=== PATIENT | female | born 1950 | race Caucasian/White ===

== ENCOUNTER 2017-08-27 08:45 | Inpatient (IN) | payer MEDICARE, OTHER ==
--- NOTE | 2017-08-20 09:03 | NUR ---
PATIENT HERE TODAY FOR PREADMISSION APPOINTMENT. PATIENT IS SCHEDULED FOR A LEFT TOTAL KNEE ARTHROPLASTY ON 08/27/17. SHE HAS A HISTORY OF BILATERAL HIP REPLACEMENTS AND A RIGHT KNEE REPLACEMENT. SHE HAS A WALKER, CANE, BATH BENCH, AND TOILET SEAT RISER FROM HER PREVIOUS SURGERIES. SHE HAS ONE STEP INTO THE HOME AND ONE STEP INTO THE LIVING ROOM AREA INSIDE THE HOME. SHE DECLINED A PREOP PHYSICAL THERAPY APPOINTMENT BUT HAS A POST OP PHYSICAL THERAPY APPOINTMENT SET UP FOR 09/09/17 AT THE [facility]. SHE STATES SHE SPOKE WITH DR HERNANDEZ REGARDING THE SWING BED PROGRAM. THIS INFORMATION WILL BE SENT TO DR DIAZ OFFICE AND HI PLANNING FOR FURTHER FOLLOW UP.
[~2017-08-27] VITALS: Ht 172.7 cm; Wt 81.7 kg
[~2017-08-27 08:45] MED LIST: ATENOLOL50 MG PO; DOCUSATE SODIU100 MG PO; ESTRACE0.5 MG PO; FLUCONAZOLE150 MG PO; KETOCONAZOLE15 GM TOP; LIPITOR20 MG PO; MECLIZINE HCL25 MG PO; MELOXICAM15 MG PO; NORCO 5-325 TA1 EACH PO; POTASSIUM CHLO10 MEQ PO; PYRIDIUM200 MG PO; SIMVASTATIN20 MG PO; THERALITH XR T1 EACH PO; UROCIT-K10 MEQ PO; ZOFRAN ODT4 MG PO
--- NOTE | 2017-08-27 10:14 | NUR ---
MED REC COMPLETE WITH DR COATS OUTPATIENT MED LIST.
--- NOTE | 2017-08-27 15:29 | NUR ---
08/27/17 1529 Ammy Michel 1458 PT ARRIVED AWAKE TALKING TO STAFF. ICE TO L KNEE. 1515 PT SIPPING ON WATER. 1520 XRAY IN DEPT DOING L KNEE XRAYS. PT WITH NO C/O'S. MOVING R LEG, UNABLE TO MOVE L LEG.
--- NOTE | 2017-08-27 15:55 | NUR ---
PT TO FLOOR AT 1550 VIA BED, ACCOMPANIED BY LIAT NORMAN. RECIEVED BEDSIDE REPORT. PT DENIES PAIN, DRESSING TO LEFT KNEE C/D/I. PT DROWSY. , BIANCA AT BEDSIDE.
--- NOTE | 2017-08-27 16:31 | NUR ---
PT STILL DROWSY. PLACED ICE PACKS TO LEFT KNEE. DRESSING REMAINS C/D/I. RIGHT LOWER EXTREMITY SENSATION INTACT. LEFT LOWER EXTREMITY SENSATION DIMINISHED FROM DERMATOME LEVEL L2 ON. PT DENIED PAIN.
--- NOTE | 2017-08-27 16:37 | NUR ---
PER REPORT FROM NEVIN Burk, CHARGE NURSE, SHE NOTIFIED [facility] PHYSICAL THERAPY OUTPATIENT LOCATION OF PT'S ORDER FOR CPM. THERE IS NOT A PHYSCIAL THERAPY STAFF AT THE HOSPITAL. PER RICK, PHYSICAL THERAPY STAFF MAY BRING CPM TO HOSPITAL TOMORROW AM, MESSAGE LEFT FOR P.T. THERE IS NO CPM AT HOSPITAL.
--- NOTE | 2017-08-27 17:00 | NUR ---
DR. COATS IN WITH PT DOING ASSESSMENT. PT ANSWERING QUESTIONS APROPRIATELY. HAD DR. COATS LOOK AT PT'S INNER RIGHT LOWER CALF/ANKLE. PT HAS A HEALING SURGICAL SITE, HAD CANCEROUS TISSUE REMOVED, PT REQUESTED TO HAVE NEOSPORIN APPLIED. DR. COATS ACKNOWLEDGED PT'S REQUEST.
--- NOTE | 2017-08-27 17:48 | NUR ---
PT UP TO BEDSIDE COMMODE WITH 2 PERSON ASSIST WITH FWW, HAD SMALL AMOUNT OF INCONTINENT URINE, AND IS NOW VOIDING URINE ON BEDSIDE COMMODE.
--- NOTE | 2017-08-27 18:22 | NUR ---
PT IN BED, HOB ELEVATED, EATING CLEAR LIQUID DINNER. DENIES PAIN. REPORTS SENSATION IS PRESENT TO BILATERAL LOWER EXTREMIITIES, BUT THAT LLE IS STILL SOMEWHAT DIMINISHED. CALL LIGHT AND PERSONAL SUPPLIES IN REACH.
--- NOTE | 2017-08-27 18:34 | NUR ---
PT SITTING UP IN BED, EATING CLEAR LIQUID TRAY. DENIES NAUSEA, DENIES PAIN.
--- NOTE | 2017-08-27 19:10 | NUR ---
IN ROOM FOR REPORT, PT'S IS AT BEDSIDE. BROUGHT PT FRESH WATER AND PT DENIES FURTHER NEEDS. CALL LIGHT IS WITHIN REACH.
--- NOTE | 2017-08-27 19:10 | NUR ---
PT IS AWAKE IN BED AND STATES SHE IS STARTING TO FEEL PAIN. WILL GET SOME CLARIFICATIONS ON MED ORDERS BEFORE ADMINISTRATION.
--- NOTE | 2017-08-27 19:50 | NUR ---
ZEV RN SPOKE WITH WITH YOAV DOWNEY TO CLARIFY IF THERE IS A HOLD ON NARCOTIC PAIN MEDICINE. SHE SAYS SHE DOES NOT HAVE A HOLD AND NEEDS TO TAKE PHENERGAN 20 MINUTES PRIOR TO NARCOTIC PAIN MEDS PO/IV. PT ASKED ABOUT CPM MACHINE ORDERED FOR TONIGHT. THE CPM MACHINE HAS BEEN REQUESTED FROM THE [facility] AND WILL HAVE TO FOLLOWUP IN THE AM.
--- NOTE | 2017-08-27 20:36 | NUR ---
ADMINISTERED MEDICATIONS AND HELPED PT TO BEDSIDE COMMODE. PT DENIES FURTHER NEEDS AT THIS TIME. CALL LIGHT IS WITHIN REACH.
--- NOTE | 2017-08-27 21:58 | NUR ---
PT STATES SHE HAS SOME PAIN AND WOULD LIKE TO STAY ON TOP OF IT. 5MG OXYCODONE GIVEN. PT DENIES FURTHER NEEDS AT THIS TIME.
--- NOTE | 2017-08-28 00:01 | NUR ---
PT IS RESTING WITH EYES CLOSED, RESPIRATIONS EVEN AND NONLABORED ON CONTINUOUS PULSEOX AND CALL LIGHT IS WITHIN REACH.
--- NOTE | 2017-08-28 00:40 | NUR ---
HELPED PT TO RESTROOM, PT IS BACK IN BED AND CALL LIGHT IS WITHIN REACH. SCDS, HEEL PROTECTORS, AND ICE IN PLACE.
--- NOTE | 2017-08-28 02:33 | NUR ---
PAIN MEDS ADMINISTERED. FRESH WATER AT BEDSIDE AND CALL LIGHT IS WITHIN REACH.
--- NOTE | 2017-08-28 05:17 | NUR ---
ADMINISTERED MEDICATIONS AND BROUGHT PT A SODA. SHE DENIES FURTHER NEEDS AT THIS TIME. CALL LIGHT IS WITHIN REACH.
--- NOTE | 2017-08-28 07:00 | NUR ---
BEDSIDE HANDOFF REPORT RECEIVED FROM HORSE RACING ANALYST RN. PT SLEEPING, LEFT UNDISTURBED.
--- NOTE | 2017-08-28 08:53 | NUR ---
PATIENT STATES THAT SHE ALREADY WASHED FACE AND HANDS AND BRUSHED TEETH. FRESH ICE WATER GIVEN. PATIENT STATED THAT SHE HAS GOTTEN UP TO THE BATHROOM ON HER OWN WITH IV POLE AND WALKER. THIS HOSE INSPECTOR AND PATCHER TALKED TO HER ABOUT THE RISKS OF GETTING UP ON HER OWN AND OUR POLICY. PATIENT STATES THAT SHE WILL NOT WAIT IF THE STAFF TAKES TO LONG.
--- NOTE | 2017-08-28 09:00 | NUR ---
PT BEING ASSISTED BY NURSE AIDE WITH [facility]. PT ASSISED TO BED. PT ON ROOM AIR, LUNG SOUNDS CLEAR. PT RATING PAIN 6/10 WITH MOVEMENT, DISCUSSED PAIN MANAGEMENT. PT DENIES NAUSEA, BOWEL TONES ACTIVE, TOLERATING REGULAR DIET. PT CMS INTACT. DRESSING TO LEFT KNEE WITH SMALL AMOUNT OF STRIKE THROUGH TO DISTAL PORTION OF DRESSING. PT REFUSING MIRALAX, STATES IT CAUSES DIARRHEA. DISCUSSED PLAN OF CARE FOR THE DAY. PT DENIES OTHER NEEDS AT THIS TIME.
--- NOTE | 2017-08-28 09:31 | NUR ---
PATIENT RESTING IN BED NOW. FRESH ICE WATER. CALL BUTTON WITHIN REACH. NO OTHER NEEDS AT THIS TIME.
--- NOTE | 2017-08-28 10:20 | NUR ---
PT GIVEN 10 MG OXYCODON EPER REQUEST. PT RATING PAIN 3/10 AT REST. PT DENIES OTHER NEEDS AT THIS TIME. PHYSICAL THERAPY TO BEDSIDE TO WORK WITH PT.
--- NOTE | 2017-08-28 12:10 | NUR ---
PT RESTING IN BED. CPM RUNNING. PT RATING PAIN 3/10, GIVEN SCHEDULED TORADOL AND TYLENOL. IV FLUSHED, PATENT. PT DENIES NEEDS AT THIS TIME.
--- NOTE | 2017-08-28 13:00 | NUR ---
PATIENT IN BED PLAYING ON PHONE. THIS IT HELP DESK ASSOCIATE TOLD PATIENT THAT WE WERE COMING IN TO REMOVE HER CPM. PATIENT STATED THAT SHE IS PUTTING SOME CODES IN HER PHONE AND TO DO WHAT WE NEED TO DO.
--- NOTE | 2017-08-28 13:56 | NUR ---
PT SITTING UP IN BED, WITH CPM DEVICE IN USE. PT WAS BUSY ON HER PHONE, NOT TOO INTERESTED IN VISITING-POLITE THOUGH. EXTENDED A BLESSING WILL FOLLOW NEEDED
--- NOTE | 2017-08-28 14:25 | NUR ---
PATIENT RESTING IN BED ON THE PHONE. CALL LIGHT WITHIN REACH. NO OTHER NEEDS AT THIS TIME.
--- NOTE | 2017-08-28 15:48 | NUR ---
PATIENT BEING MOVED FROM ROOM 119 TO ROOM 114.
--- NOTE | 2017-08-28 16:00 | NUR ---
PT MOVED TO ROOM 114, BELONGINGS MOVED WITH PT. PT SETTLED IN ROOM. PT REQUESTING TO WEAR CPM, PLACED AT 0-60 DEGREES TO LEFT LEG. PT DENIES OTHER NEEDS AT THIS TIME, CALL LIGHT WITHIN REACH.
--- NOTE | 2017-08-28 16:44 | NUR ---
PT ON ROOM AIR. PAIN WELL CONTROLLED WITH 10 MG PO OXYCODONE Q4H, SCHEDULED TYLENOL AND TORADOL. PT UP WITH PHYSICAL THERAPY, WALKED IN DEMPSEY, CPM SET UP AND COMPLETED TWICE. SBA WITH FWW. PT TOLERATING REGULAR DIET. CMS INTACT. SCDS, HEEL PROTECTORS. DRESSING WITH SMALL AMOUNT OF STRIKE THROUGH THIS MORNING, UNCHANGED. PT VOIDING QS.
--- NOTE | 2017-08-28 18:46 | NUR ---
PT WITH PHLEBITIS TO RFA ABOVE IV SITE, IV DISCONTINUED. NEW IV SITE OBTAINED TO LAC, 22G. PT RESTING IN BED. PT DENIES OTHER NEEDS AT THIS TIME.
--- NOTE | 2017-08-28 19:15 | NUR ---
RECEIVED REPORT FROM DAY SHIFT RN. PATIENT IS RESTING IN BED WATCHING TV. PATIENT RATES PAIN AT A 3/10. DENIES THE NEED FOR PAIN MEDICATION AT THIS TIME. CALL LIGHT IN REACH. NO NEEDS NOTED.
--- NOTE | 2017-08-28 21:00 | NUR ---
PT AWAKE IN BED. PT WANTED TO KNOW WHEN SHE COULD HAVE PAIN MEDS. SAID PAIN WAS 7 OUT OF 10. TOLD NURSE PUMA.
--- NOTE | 2017-08-28 21:02 | NUR ---
PATIENT ASSSESMENT COMPLETED. PATIENT HAS SHADOWING ON BANDAGE BELOW THE KNEE. PATIENT RATES PAIN AT A 3/10. WILL BRING PATIENT PAIN MEDICATION WHEN AVAILABLE, PATIENT AGREES. PATIENTS EVENING MEDICATIONS GIVEN PER ORDER. PATIENTS VITALS TAKEN AND RECORDED. PATIENT REFUSED MILK OF MAG. PATIENT GIVEN SCHEDULED SLEEP AID PER ORDER. PATIENT DENIES ANY FURTHER NEEDS. CALL LIGHT IN REACH.
--- NOTE | 2017-08-28 22:12 | NUR ---
PATIENT GIVEN PRN PHENEGRAN PER ORDER. PATIENT REQUESTED NAUSEA MEDICATION BEFORE PAIN MEDICATION GIVEN. PATIENT ALSO PROVIDED WITH ICE PACK FOR RIGHT KNEE.
--- NOTE | 2017-08-28 22:53 | NUR ---
PATIENT GIVEN PRN PAIN MEDICATION PER ORDER. PATIENT RATES PAIN AT A 8/10. PATIENT COMPLAINS OF PAIN IN HER "KNEE CAP AND UPPER THIGH" PATIENT ASSISTED TO THE RESTROOM A SBA W/FWW. PATIENT IA NOW BACK IN BED RESTING. PATIENT HAS ICE APPLIED TO LEFT KNEE. PATIENT HAS SCDS AND HEEL PROTECTORS IN PLACE. NO FURTHER NEEDS NOTED. CALL LIGHT IN REACH.
--- NOTE | 2017-08-29 00:09 | NUR ---
PATIENT GIVEN SHCEDULED PAIN MEDICATION. PATIENT RATES PAIN AT A 7/10. PATIENT CONTINUES TO STRUGGLE WITH SLEEP. NO FURTHER NEEDS NOTED. CALL LIGHT IN REACH.
--- NOTE | 2017-08-29 01:35 | NUR ---
TOOK PT MIDNIGHT SNACK. EMPTYED GARBAGE. UPDATED WB.
--- NOTE | 2017-08-29 02:59 | NUR ---
PATIENT GIVEN PHENEGRAN HALF HOUR BEFORE GIVEN PRN PAIN MEDICATION FOR 10/10 PAIN. PATIENT COMPLAINS OF "BURNING" PAIN IN HER LEFT KNEE. PATIENT WAS ABLE TO AMBULATE IN THE DEMPSEY FROM ROOM 114 TO ROOM 111 AND BACK. PATIENT IS NOW IN BED RESTING WITH SCDS AND HEEL PROTECTORS ON. ICE APPLIED TO LEFT KNEE. PATIENT GIVEN DIET COKE PER REQUEST. NO FURTHER NEEDS NOTED. CALL LIGHT IN REACH.
--- NOTE | 2017-08-29 05:07 | NUR ---
PATIENT IS RESTING IN BED WATCHING TV. PATIENT RATES PAIN AT A 5/10. PATIENT WOULD LIKE PAIN MEDICATION WHEN AVAILABLE. DISCUSSED SWING BED WITH PATIENT. ALL QUESTIONS ANSWERED TO THE BEST OF MY ABILITY. WILL LET DISCHARGE PLANNING KNOW SHE WOULD LIKE TO SPEEK WITH THEM. PATIENT DENIES ANY FURTHER NEEDS AT THIS TIME. CALL LIGHT IN REACH.
--- NOTE | 2017-08-29 05:27 | NUR ---
PATIENT DID NOT REST DURING THIS SHIFT. PATIENT IS ON A REG DIET AND IS TOLERATING IT WELL, NO NAUSEA NOTED. PATIENT IS A SBA W/FWW AND IS STEADY ON HER FEET. PATIENT HAS SCDS AND HEEL PROTECTORS IN PLACE. PATIENT IS SL AND IV FLUSHES WELL. PATIENT RECEVEID PRN PAIN MEDICATION Q4HRS AND NAUSEA MEDICATION EVERY TIME BEFORE PAIN MEDICATION. PATIENT HAS CPM ORDER FOR TID 2 HRS AT A TIME. PATIENT HAS ICE APPLIED TO LEFT KNEE PRN. PATIENT HAS DRY SHADOWING BELOW THE KNEE ON THE DRESSING. PATIENT IS AAOX3 AND USES CALL LIGHT APPROPRIATELY.
--- NOTE | 2017-08-29 05:48 | NUR ---
PT DOING WELL. LAB WAS IN DRAWING BLOOD. PT HAS CALL LIGHT IN REACH
--- NOTE | 2017-08-29 06:02 | NUR ---
PATIENT GIVEN SHEDULED OAIN MEDICATION PER ORDER. PATIENT RATES PAIN AT A 5/10. NO FURTHER NEEDS NOTED. CALL LIGHT IN REACH.
--- NOTE | 2017-08-29 07:05 | NUR ---
PATIENT GIVEN PRN PAIN MEDICATION PER ORDER FOR 10/31. PATIENT ASSISTED TO THE RESTROOM. PATIENT IS A SBA W/FWW. PATIENT IS BACK IN BED WITH SCDS AND HEEL PROTECTORS. NO FURTHER NEEDS NOTED. CALL LIGHT IN REACH.
--- NOTE | 2017-08-29 07:10 | NUR ---
BEDSIDE HANDOFF REPORT RECEIVED FROM HEART SPECIALIST RN.
--- NOTE | 2017-08-29 08:18 | NUR ---
PATIENT SITTING UP IN BED EATING BREAKFAST. PATIENT REPEATEDLY ASKED THIS CORPORATE COMPLIANCE DIRECTOR TO CALL HER SONS QUALITY MANAGER TO HAVE INFO RELEASED TO ANOTHER QUALITY MANAGER FOR TAX PURPOSES. THIS CORPORATE COMPLIANCE DIRECTOR TOLD HER THAT WOULD NOT BE POSSIBLE AND REDIRECTED THE CONVERSATION. PATIENT SEEMS A BIT CONFUSED AND IS TALKING ABOUT SEVERAL DIFFERENT THINGS AT ONCE. EXTREMELY ITCHY THIS MORNING. CALL LIGHT IN REACH NO OTHER NEEDS.
--- NOTE | 2017-08-29 08:45 | NUR ---
NOTIFIED BY NURSE AIDE THAT PT WAS NOT MAKING SENSE. PT RESTING IN BED. PT ANSWERING ALL ORIENTATION QUESTIONS CORRECTLY BUT PT IS NOT HAVING FLUID THOUGHT PROCESSES AND IS TALKING ABOUT BEING AT THE POST OFFICE THIS MORNING, PT HAS NOT SLEPT FOR PAST TWO DAYS, DISCUSSED WITH PT POSSIBLE CAUSES FOR CONFUSION. PT ON ROOM AIR, LUNSG SOUNDS CLEAR. PT TOELRATING REGULAR DIET, GOOD APPETITE, BOWEL TONES ACTIVE. CMS INTACT, WITHOUT EDEMA. PHYSICAL THERAPY AT BEDSIDE TO WORK WITH PT. PT DENIES OTHER NEEDS AT THIS TIME. DR. HERNANDEZ AND DR. WHEELER NOTIFIED OF CONFUSION, NO NEW ORDERS. PT DENIES OTHER NEEDS AT THIS TIME.
--- NOTE | 2017-08-29 09:44 | OR ---
[facility] [address], [place] [address] Signed DATE OF OPERATION: 08/27/2017 SURGEON: Ken Hernandez MD PREOPERATIVE DIAGNOSIS: End-stage osteoarthritis, left knee. POSTOPERATIVE DIAGNOSIS: End-stage osteoarthritis, left knee. PROCEDURE: Left total knee arthroplasty. ANESTHESIA: Spinal with sedation. SPECIMENS AND COMPLICATIONS: There were no specimens or complications. TOURNIQUET TIME: Little over 80 minutes. IMPLANTS: Attune size 6 narrow PS femur, a size 5 fixed bearing tibial tray with a 5 PS poly and a 35 mm All-Poly patellar button. WHAT WAS DONE: The patient was taken to the operating room. After anesthesia was induced and airway secured, the patient was positioned, prepped and draped in a routine sterile fashion. The leg was exsanguinated with an Esmarch bandage. Pneumatic tourniquet about the thigh was inflated to 300 mmHg pressure. A straight anterior approach was made at the knee to skin and subcutaneous tissue. A small medial flap was created and an anteromedial arthrotomy performed. The patella was turned on edge and about 9 mm were trimmed off the posterior aspect. A 35 mm popsicle was placed on the back of the patella and drill holes were made. A 35 mm All-Poly patella was then snap fitted into place and gave us good alignment and good position, and reconstituted the pre-resection patellar height. The patella was then slid into the lateral recess. We then flexed the knee and placed the [employer] navigation device on the distal femur. Using the protocol, the distal femur was then resected at neutral varus valgus, taking about 10 mm off the medial side and resecting it in about 3 degrees of flexion. The femoral wafers were then removed. We Electronically Signed By: KEN HERNANDEZ MD 08/29/17 0944 PATIENT NAME: RUTH JHA OPERATIVE REPORT DATE OF : 52 REPORT #: [id number] PHYSICIAN: KEN HERNANDEZ MD PCP: CECY COATS MD REPORT IS CONFIDENTIAL AND NOT TO BE RELEASED WITHOUT AUTHORIZATION [facility] [address], [place] [address] Signed then transitioned the guide to the tibia and again following the [place] navigation protocol digitized the proximal tibia and then resected that in neutral varus valgus 3 degrees of posterior slope per the Attune surgical protocol and removing about 5 mm off the medial tibial plateau. The tibial wafer was removed and sized to a size 5. We then placed the femoral sizing jig on the distal femur and it sized to a size somewhere between a 6 and 7. We placed the drill guides in 3 degrees of external rotation, but once we put the 7, 4-in-1 cutting block on the end was significantly clear, we are going to have significant overhang medially and laterally. We therefore downsized the size 6 cutting block. Anterior, posterior and chamfer cuts were made. We did have a tiny notch on the anterior femur, but felt it was better than having medial and lateral overhang with a size 7. We then put the notch cutting block in place and cut out the femoral notch. The lamina juvenile corrections officer was placed in the knee and remnants of the medial and lateral meniscus, ACL, and PCL were all removed. The femoral trial was placed on the distal femur and the lug holes were drilled. We then placed the size 5 tibial tray with a [address] and reduced the knee. We cycled the knee and allowed the tibial tray to flowed into its correct externally rotated position. We then marked the alignment and removed the trials. The tibia was then prepared with the reamer and broach. The knee was copiously irrigated and meticulously dried. The final components were then cemented into place and the knee was held in full extension with a [address]. Once the cement had cured, marginal cementophytes were sought and removed. The knee was again copiously irrigated. We had excellent stability in flexion, extension, and mid range. We therefore removed the trial poly, inserted a 5 poly and impacted it into the base. The knee was again irrigated and closed in a standard fashion. Sterile dressing was applied and the patient was awakened to recovery room, where she arrived in stable condition. Counts were correct and antibiotic protocols were followed. Ken Hernandez MD WFB/MODL /[id number] Copies: Electronically Signed By: KEN HERNANDEZ MD 08/29/17 0944 PATIENT NAME: RUTH JHA OPERATIVE REPORT DATE OF : 52 REPORT #: [id number] PHYSICIAN: KEN HERNANDEZ MD PCP: CECY COATS MD REPORT IS CONFIDENTIAL AND NOT TO BE RELEASED WITHOUT AUTHORIZATION [address] [address] Signed ~ Electronically Signed By: KEN HERNANDEZ MD 08/29/17 0944 PATIENT NAME: RUTH JHA OPERATIVE REPORT DATE OF : 52 REPORT #: [id number] PHYSICIAN: KEN HERNANDEZ MD PCP: CECY COATS MD REPORT IS CONFIDENTIAL AND NOT TO BE RELEASED WITHOUT AUTHORIZATION
--- NOTE | 2017-08-29 11:30 | NUR ---
WENT TO TALK [facility] PT REQ PER PT. SHE HAD A FRIEND COME TO VISIT RIGHT AFTER I WALKED INTO THE ROOM--PT TOLD HER FRIEND TO HAVE A SEAT THAT I NEEDED TO TALK TO HER. I TOLD HER I WAS TOLD THAT SHE WANTED TO SPEAK WITH ME AND WHAT COULD I DO TO HELP HER. SHE STATES "I TOOK A VACATION THIS AM I GUESS, I HAD BEEN WAITING ALL DAY FOR THE PT TO COME IN AND THEN I FOUND OUT THEY HAD ALREADY BEEN HERE. OH WELL". I AGAIN ASKED WHAT I COULD DO TO HELP SHE TOLD ME THAT " DR HERNANDEZ HAD BEEN IN AND HE HAD STATED THAT HE WAS GOING TO MAKE HER A SWING BED AND WHY ARE WE JUST HANGING AROUND COULD WE GET BUSY AND MAKE IT HAPPEN." I AGAIN EXPLAINED WE NEEDED THE 3 MIDNIGHT STAY AND SHE HAD TO MEET CRITERIA FOR A SKILLED NEED. 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 SHE STATED WELL HE IS NOT IN THE OFFICE ON SATURDAY SO I DON'T KNOW HOW HE IS GOING TO DO THAT IF HE ISN'T IN THE OFFICE TOMORROW. TOLD HER I WOULD BE BACK.
--- NOTE | 2017-08-29 12:11 | NUR ---
IV FLUSHED, PAIN WITH FLUSHING. MD CALLED, ORDER TO DISCONTINUE IV TORADOL AND OK TO LEAVE IV OUT.
--- NOTE | 2017-08-29 13:33 | NUR ---
PT ON PHONE MUCH OF THE MORNING. TRIED TO VISIT, BUT COULD NOT FIND A TIME WHEN SHE WAS NOT ON THE PHONE. WILL CHECK BACK LATER
--- NOTE | 2017-08-29 13:45 | NUR ---
PT PLACED INTO CPM. 0-60 DEGREES. PT TOLERATING WELL. PT RATING PAIN 5/10. PT BEGINNING TO HAVE CLEARER THOUGHT PROCESSES, REALIZING THAT SHE WAS CONFUSED THIS MORNING, DISCUSSED WITH PT. PT DESIES OTHER NEEDS AT THIS TIME.
--- NOTE | 2017-08-29 13:50 | NUR ---
TALKED WITH THE PT TOLD HER I HAD TALKED WITH DR HERNANDEZ AND THAT HE STATED IF SHE MET CRITERIA HE WOULD ADMIT HER TO SWING BED, BUT SHE HAD TO MEET CRITERIA.
--- NOTE | 2017-08-29 14:46 | NUR ---
SEQUINS STRINGER IS PROVIDING ALL CARE FOR PT AND WILL BE TAKING VITALS AND CHARTING I&Os. WILL CHECK FREQUENTLY WITH STUDENT TO SEE IF SHE NEEDS HELP.
--- NOTE | 2017-08-29 15:17 | NUR ---
Pt walked with PT and practiced exercises. Pt was able to maneuver in and out of bed with minimal assistance. Pt tolerated therapy well noted by minimal pain and a steady gait. Pt is currently resting in bed with CPM in use. Pt states no concerns at this time. Call light is in reach.
--- NOTE | 2017-08-29 16:00 | NUR ---
CPM COMPLETED, REMOVED, PT TOLERATED WELL. PT ON ROOM AIR. PT MENATTAION BACK TO BASELINE. PT REPORTING PAIN 5/10 TO LEFT LEG, GIVEN 5 MG OXYCODONE. ICE PACK PLACED TO LEFT KNEE. CMS INTACT. NO ACUTE CHANGES. PT DENIES OTHER NEEDS AT THIS TIME.
--- NOTE | 2017-08-29 17:15 | NUR ---
Pt ambulated to the bathroom; tolerated well and brief was changed. Patient is sitting in bed eating dinner. Warm blanket provided for comfort. Pt states no concerns at this time. Bed rails up and call light is within reach.
--- NOTE | 2017-08-29 17:43 | NUR ---
PT CONFUSED THIS MORNING, NOW CLEARED AND AT BASELINE. PT ONR OOM AIR, LUNG SOUNDS CLEAR. PT WORKED WITH PHYSICAL THERAPY, CPM COMPLETED ONCE. PT TOLERATING REGULAR DIET. SBA WITH FWW. RIGHT KNEE INCISION OPEN TO AIR, OLD DRAINAGE AND BRUISING. CMS INTACT, SCDS AND HEEL PROTECTORS. IV ACCESS LOST, ORDER FOR OK TO LEAVE OUT. PT VOIDING QS.
--- NOTE | 2017-08-29 18:54 | NUR ---
Pt ambulated to bathroom; tolerated well. CPM jamiee initiated at 1850. Pt complains of pain; nurse notified.
--- NOTE | 2017-08-29 19:25 | NUR ---
BEDSIDE REPORT RECEIVED FROM LIAT MCLAIN AND . PT LYING IN BED, CPM MACHINE ON. SCD MACHINE ON. PT RATES PAIN 4-5/10 AT THIS TIME. ALERT AND ORIENTED, CONCERNED WITH DISCHARGE PLANNING. MADE PLAN TO TRY EAR PLUGS, ALLOW PT TO REST. NO IV ACCESS. PT HAS NO REQUESTS AT THIS TIME, CALL LIGHT IN REACH.
--- NOTE | 2017-08-29 19:53 | NUR ---
ROUNDED CHARGE. PATIENT IS RESTING IN BED WITH CPM IN PLACE. PATIENT DENIES ANY COMMENTS, QUESTIONS, OR CONCERNS. NO NEEDS NOTED CALL LIGHT IN REACH.
--- NOTE | 2017-08-29 20:42 | NUR ---
PT ASSESSMENT COMPLETE AT THIS TIME. PT IS AWAKE, ALERT IN BED, RATES PAIN 5/10 IN LEFT KNEE. ADMINISTERED PRN OXYCODONE 10 MG AT THIS TIME, PRN PHENERGEN ALSO ADMINISTERED 12.5 MG. PT GIVEN ICE PACK FOR LEFT KNEE. CSM INTACT BILATERALLY UPPER AND LOWER EXTREMITIES. BRUISING NOTED ON LEFT KNEE, INCISION CLEAN DRY AND INTACT. PT REFUSED MILK OF MAG, COLACE, REFUSED TRAZADONE AT THIS TIME, REQUESTING LATER ADMIN. PT HAS CALL LIGHT IN REACH, GIVEN CRANBERRY JUICE. CALL LIGHT IN REACH, SCDS, HEEL PROTECTORS, CPM MACHINE ON.
--- NOTE | 2017-08-29 22:40 | NUR ---
SCHEDULED TRAZADONE ADMINISTERED. PT RATES PAIN 3/10 AT THIS TIME IN LEFT KNEE. COCOA MILLING MACHINE OPERATOR SEPTEMBER IN ROOM. NEW ICE PACK GIVEN FOR KNEE. FOOT PUMPS, HEEL PROTECTORS ON BILATERALLY. LIGHTS OFF IN PT ROOM, CALL LIGHT IN REACH.
--- NOTE | 2017-08-29 22:48 | NUR ---
FRESH ICE GIVEN FOR HER CUP AND FRESH ICE PACK FOR HER KNEE. BEDSIDE TABLE AND CALL LIGHT WITHING REACH. PT NEEDS NOTHING ELSE AT THIS TIME.
--- NOTE | 2017-08-30 00:30 | NUR ---
ADMINISTERED PRN OXYCODONE FOR 3/10 PAIN IN LEFT KNEE, SCHEDULED TYLENOL, PRN PHENERGEN REQUESTED. PT ASSISTED TO RESTROOM WITH FWW SBA FOR VOID. PT COMPLETED BED BATH IN RESTROOM, WARM WIPES GIVEN. PT ALSO UP APPLYING MAKEUP AT THIS TIME. PT ADMITTED TO DOZING OFF. ASSISTED BACK TO BED, FOOT PUMPS ON, HEEL PROTECTORS ON. CALL LIGHT IN REACH.
--- NOTE | 2017-08-30 01:37 | NUR ---
PT REQUESTING DIET COKE, ENCOURAGED PT TO DRINK JUICE, NON-CAFFEINATED BEVERAGES, CRANBERRY JUICE GIVEN. PT ASSESSMENT COMPLETE AT THIS TIME, LUNGS CLEAR THROUGHOUT ALL LOBES. CSM INTACT BLE, BUE. INCISION CLEAN DRY AND INTACT ON LEFT KNEE. HR REGULAR RHYTHM. BOWEL TONES ACTIVE X 4, PASSING GAS. PT DENIES ITCHING,DENIES NAUSEA. RATES PAIN 3/10. CALL LIGHT IN REACH, LIGHTS OFF IN ROOM.
--- NOTE | 2017-08-30 04:01 | NUR ---
PT APPEARS TO BE SLEEPING AT THIS TIME, EYES CLOSED, BREATHING NON-LABORED, EQUAL CHEST RISE BILATERALLY.
--- NOTE | 2017-08-30 05:23 | NUR ---
PT ABLE TO SLEEP THROUGH MORNING HOURS OF SHIFT AFTER TRAZADONE ADMINISTRATION. PT CONTINUES TO RECEIVE PRN OXYCODONE AVAILABLE FOR PAIN CONTROL, REQUESTING PRN PHENERGEN AVAILABLE. INCISION CLEAN DRY AND INTACT WITH BRUISING NOTED ON INNER LEFT KNEE. CSM INTACT BLE. ICE TO KNEE THROUGHOUT SHIFT. PT USED CPM MACHINE FOR 2 HOURS AT START OF SHIFT. DENIES NAUSEA. UP TO RESTROOM FOR VOIDS WITH FWW AND MIN ASSIST OUT OF BED.
--- NOTE | 2017-08-30 06:05 | NUR ---
PT STATES PAIN 3-4/10 IN LEFT KNEE. ADMINISTERED PRN OXYCODONE, PRN TYLENOL, PRN PHENERGEN. PT REQUESTING DIET COKE, GIVEN AT THIS TIME PT HAS SLEPT. INCISION ON LEFT KNEE CLEAN DRY AND INTACT. NEW ICE PACK GIVEN AND APPLIED TO KNEE. VENOUS FOOT PUMPS AND HEEL PROTECTORS IN PLACE BLE, CSM INTACT. PT HAS CALL LIGHT, GIVEN CRACKERS AND MENU TO ORDER BREAKFAST.
--- NOTE | 2017-08-30 08:32 | NUR ---
Pt ate breakfast; resting in bed at this time. Pt rates pain 3/10; ice pack applied. Pt would like to shower after working with PT. Pt is requesting PRN medication for constipation; last bowel movement 08/27. Pt states no concerns at this time. Call light within reach.
--- NOTE | 2017-08-30 09:27 | NUR ---
PATIENT'S WAS IN TO VISIT WITH HER AT THIS TIME. PATIET REQUESTED PAIN MEDICATION FOR PHYSICAL THERAPY. WILL BRING OXYCODONE IN WHEN ITS DUE AT 10. PATIENT IS ALERT AND ORIENTED AT THIS TIME. SHE IS AWAITING PHYSICAL THERAPY.
--- NOTE | 2017-08-30 10:38 | NUR ---
Pt is up walking with PT. Pt requested PRN oxycodone for pain 12/01 and PRN phenergan to negate nausea. PRN medications administered; plans to shower following PT. Pt blood pressure 110/34, MAP 50; primary nurse notified. Pt A&O x4. Pt states no concerns at this time.
--- NOTE | 2017-08-30 10:41 | NUR ---
PATIENT UP AMBULATING THE HALLWAY WITH FWW AND PHYSICAL THERAPY. PATIENT NEEDED ASSISTANCE WITH HER LEFT LEG WHILE GETTING OUT OF BED BUT WAS ABLE TO STAND UP OOB BY HERSELF. SHE IS STEADY ON HER FEET WITH HER FWW.
--- NOTE | 2017-08-30 11:02 | NUR ---
Pt back in bed resting at this time. Pt states she wants to eat lunch before taking a shower. Pt rates pain 5/10; PT provided ice pack. Diet Coke provided upon request. Patient states no concerns at this time; call light within reach.
--- NOTE | 2017-08-30 11:52 | NUR ---
Pt is eating lunch in bed; states pain has subsided to 3/10. Pt reports no BM since recieving PRN medication for contipation; bowel tones are active in all four quadrants. Ice pack reapplied to left knee at this time. Patient states no concerns; call light within reach.
--- NOTE | 2017-08-30 13:53 | NUR ---
PATIENT UP TO THE SHOWER, LINEN CHANGE DONE, PATIENT ABLE TO STAND UP FROM THE CHAIR AND AMBULATE BY HERSELF WITHOUT ANY ASSISTANCE TODAY. PATIENT UP FROM THE TOILET BY HERSELF.
--- NOTE | 2017-08-30 14:17 | NUR ---
patient c/o 7/10 abdominal pain after showering, patient given 10mg of oxycodone po and 12.5mg of phenergan po. patient placed in the cpm at this time.
--- NOTE | 2017-08-30 14:32 | NUR ---
PT IS SITTING UP IN BED WITH CALL LIGHT IN REACH. PT ASKED FOR A DIET COKE WITH ICE.
--- NOTE | 2017-08-30 15:57 | NUR ---
PATIENT TOOK SHOWER AROUND 1415 SHE DIDN'T WANT TO WASH HER HAIR. I HELPED HER WASH HER BACK BUT SHE DID THE REST. HELPED HER PUT HER UNDERWEAR ON AND ALSO HER PAJAMA BOTTOMS ON.
--- NOTE | 2017-08-30 16:06 | NUR ---
PATIENT ASSISTED UP TO THE BEDSIDE, SHE HAD A HARD TIME LIFTING HER FOOT UP OOB AFTER USING THE CPM FOR 2 HOURS. SHE AMBULATED INDEPENTENDLY TO THE BATHROOM AND NEEDED ASSISTANCE WITH HER LEG KICKING IT OUT TO SIT AT THE TOILET. PATIENT WAS ABLE TO VOID 250 MLS OF CLEAR YELLOW URINE.
--- NOTE | 2017-08-30 16:45 | NUR ---
PATIENT RESTING WITH EYES CLOSED, DENIES ANY NEEDS AT THIS TIME
--- NOTE | 2017-08-30 17:05 | NUR ---
PATIENT HAS HER DINNER IN THE FRID[place], PATIENT RESTING WITH HER EYES CLOSED WILL CALL WHEN SHE WANTS TO EAT HER DINNER
--- NOTE | 2017-08-30 18:06 | NUR ---
THIS PATIENT HAS BEEN A 1 PERSON ASSIST TODAY. SHE HAS NEEDED ASSISTANCE WITH HER LEG AFTER USING THE CPM AND WORKING WITH PHYSICAL THERAPY DUE TO EXTREME PAIN AND MUSCLE TIREDNESS. SHE ATTEMPTED TO MOVE THE LEG WITH HOLDING HER SOCK AND WAS NOT SUCCESSFUL. PATIENT HAS A INCISION TO THE LEFT KNEE THAT IS CDI SOME BRUISING NOTED. PATIENT IS ALERT AND ORIENTED. SHE HAS CONTROLLED PAIN WITH 10MG OF PO OXYCODONE AND 12.5MG OF PO PHENERGAN.
--- NOTE | 2017-08-30 18:31 | NUR ---
PATIENT 1 PERSON ASSIST UP TO THE BATHROOM TO HAVE A BM. PATIENT PAIN AT A 6 PATIENT GIVEN SCHEDULED TYLENOL PO AND REQUESTED 5MG OF OXYCODONE PO AT THIS TIME.
--- NOTE | 2017-08-30 19:14 | NUR ---
DOCTOR DAVID CALLED AND UPDATED REGARDING REDDNESS AND WARM TO THE TOUCH INNER LEFT KNEE. THAT REDDNESS HAS SPREAD UP THE INNER THIGH AND PATIENT HAS HAD CHILLS AND BODY ACHES ALL DAY. HE ADVISED US TO APPLY ICE TO THE LEG, RN NOTIFIED HIM THAT ICE HAS BEEN ON THE KNEE TODAY INSTRUCTED.
--- NOTE | 2017-08-30 19:30 | NUR ---
RECIEVED REPORT FROM DAY SHIFT NURSE. PATIENT RESTING IN BED. C/O NAUSEA AFTER TAKING PAIN MEDICATION. ADMINISTERED PHENERGAN. PATIENTS KNEE IS LOOKING RED ON THE MEDIAL ASPECT, STARTING TO SPREAD UP HER THIGH. BEN JOSUE CALLED MD TO NOTIFY. LABS PUT IN FOR TOMORROW MORNING (ESR, CBC). PATIENT DENIES FURTHER NEEDS. CALL LIGHT IN REACH.
--- NOTE | 2017-08-30 20:17 | NUR ---
patient sitting on toilet. vomitted 500cc of brown/undigested food. patient states her stomach is rolling around and making her feel nauseous. phenergan was administered at start of shift. patient states she still feels nauseous. cool cloth given.
--- NOTE | 2017-08-30 20:26 | NUR ---
patient vomitted again, 100cc. she is now having a bm. she is still on the toilet. i offered to put in an iv so that she may recieve a different anti-emetic. patient refused. call light in reach.
--- NOTE | 2017-08-30 21:30 | NUR ---
REDNESS HAS GONE DOWN ON MEDIAL SIDE OF L KNEE. KNEE HAS MODERATE SWELLING. LUNGS CLEAR, HR REG, ACTIVE BS. PATIENT HAS BEEN HAVING DIARRHEA. SHE HAS BEEN VOMITTING ALL NIGHT. IV ACCESS OBTAINED AND REGLAN ADMINISTERED.
--- NOTE | 2017-08-30 21:41 | NUR ---
VITALS AND I&OS DONE AND CHARTED. FRESH ICE WATER GIVEN. BEDSIDE TABLE AND CALL LIGHT WITHIN REACH.
--- NOTE | 2017-08-30 22:11 | NUR ---
PATIENT STATES SHE HAS THE CHILLS. TEMPERATURE OBTAINED-99 DEGREE F. WARM BLANKET APPLIED.
--- NOTE | 2017-08-30 22:19 | NUR ---
PATIENT STATES SHE IS NO LONGER NAUSEOUS BUT SHE DOES NOT WANT TO TAKE HER NIGHT MEDICATION YET BECUASE SHE IS SCARED SHE IS GOING TO GET NAUSEOUS AGAIN. MORE WARM BLANLETS APPLIED PER PATIENT'S REQUEST.
--- NOTE | 2017-08-30 23:07 | NUR ---
PATIENT'S TEMP AT 100.1. PATIENT STATES SHE CANNOT STOP SHIVERING. CALLED DR. HERNANDEZ AND LEFT A MESSAGE ON HIS CELL PHONE. TYLENOL ADMINISTERED. PATIENT RATES PAIN 3/. REFUSED OXYCODONE AT THIS TIME. PATIENT REFUSES TO WEAR CPM. CALL LIGHT IN REACH.
--- NOTE | 2017-08-31 00:05 | NUR ---
RE-TOOK PATIENT'S TEMP. 99.8F. PATIENT STILL FEELS "CHILLED." L KNEE WITH REDNESS-NOT BAD IT WAS WHEN I FIRST CAME ON SHIFT. MARKED WITH SKIN PEN. ICE HAS BEEN IN PLACE SINCE 193 ON L KNEE. PATIENT DENIES FURTHER NEEDS. CALL LIGHT IN REACH.
--- NOTE | 2017-08-31 00:52 | NUR ---
patient states she is no longer chilled. states her pain is at a 4/10. denies the need for oxycodone at this point. states her knee feels "tight." denies needs, call light in reach.
--- NOTE | 2017-08-31 02:30 | NUR ---
PATIENT UP TO BATHROOM WITH ASSIST. IT APPEARS SHE IS HAVING A LOT OF TROUBLE MOVING HER LLE. SHE SLIDES HER FOOT WHEN SHE WALKS INSTEAD OF PICKING IT UP OFF THE GROUND. INSTRUCTED HER TO PICK IT UP OFF THE GROUND. PATIENT DENIES NEED FOR PAIN MEDICATION AT THIS TIME.
--- NOTE | 2017-08-31 02:50 | NUR ---
PATIENT BACK TO BED. I HAD TO HELP HER LIFT HER LLE ON TO THE BED. REDNESS HAS ONCE AGAIN DIMINISHED ON HER L KNEE. PATIENT DENIES FEELING CHILLED. DENIES NAUSEA. NO NUMBNESS OR TINGLING. L KNEE IS STILL MODERATELY SWOLLEN. LUNGS CLEAR, HR REGULAR, ACTIVE BS. SCDS IN PLACE. PATIENT STILL REFUSING TO PUT CPM ON BECAUSE SHE WANTS TO TRY AND SLEEP AGAIN. I TOLD HER TO CALL ME IF SHE IS UNABLE TO SLEEP SO WE MAY PUT THE CPM IN PLACE. CALL LIGHT IN REACH.
--- NOTE | 2017-08-31 04:15 | NUR ---
PATIENT SLEEPING. CALL LIGHT IN REACH.
--- NOTE | 2017-08-31 04:17 | NUR ---
PATIENT SLEEPING. CALL LIGHT IN REACH.
--- NOTE | 2017-08-31 05:51 | NUR ---
VITALS AND I&OS DONE
--- NOTE | 2017-08-31 06:34 | NUR ---
PATIENT RATES PAIN 3/10. APPLIED CPM, PATIENT SCREAMING IN PAIN. STATES IT SHOOTS UP TO AN 8/10 AT TIMES WITH THE CPM. I OFFERED PAIN MEDICINE. PATIENT STATES I AM TOO SCARED I WILL GET NAUSEOUS AGAIN. EDUCATED HER ABOUT PREMEDICATING WITH PHENERGAN AND HAVING FOOD IN HER STOMACH BEFORE SHE TAKES MEDICATION. PATIENT AGREED TO EAT A FEW SALTINE CRACKERS, TAKE A PHENERGAN AND THEN AN OXYCODONE. PATIENT DENIES FURTHER NEEDS. CALL LIGHT IN REACH.
--- NOTE | 2017-08-31 07:25 | NUR ---
RECIEVED REPORT FROM MICAELA JOSUE. PT LYING IN BED WITH CPM IN PLACE. WILL REMOVE AT 0830. PHENERGAN GIVEN BEFORE PAIN MEDICATION FOR NAUSEA. LEFT LEG SURGICAL SITE IS OPEN TO AIR. REDNESS IS MARKED. LEFT LEG IS HOT. RIGHT IS WARM. LLE APPEARS TO BE SWOLLEN. PT IS SL IN LEFT WRIST. CALL LIGHT WITHIN REACH. REPORTS NO OTHER NEEDS AT THIS TIME.
--- NOTE | 2017-08-31 07:27 | NUR ---
PT ATE CRACKERS APPOX 30 MIN AGO, HAD NAUSEA MED WELL, MED WITH PRN PAIN MED AT THIS MARGARITA. CALL LIGHT WITHIN REACH. CURRENTLY DR HERNANDEZ WITH PT.
--- NOTE | 2017-08-31 08:58 | NUR ---
PHYSICAL THERAPIST CHECKED WITH THIS RN ABOUT SEEING PATIENT. PRE-MEDICATED AT 0730 WITH OXYCODONE FOR THERAPY THIS MORNING. PATIENT POSSIBLY DISCHARGING TOMORROW PER DR HERNANDEZ NOTE. WILL CONVENE WITH PHYSICAL THERAPIST HOW PATIENT DOES DURING THERAPY.
--- NOTE | 2017-08-31 10:10 | NUR ---
PT IS SITTING UP IN BED WITH CALL LIGHT IN REACH. PT DID NOT NEED ANYTHING AT THE MOMENT. PHYSICAL THERAPY ENTERED THE ROOM I LEFT AND BEGAN WORKING WITH THE PATIENT.
--- NOTE | 2017-08-31 10:45 | NUR ---
PT BACK TO BED AFTER WORKING WITH PHYSICAL THERAPY. REPORTS PAIN WHILE AMBULAING 6/10. WHILE LYING 3/10 WHICH IS TOLLERABLE. PT REPORTED PHYSICAL THERAPY WENT VERY WELL, EXCEPT GETTING HER LEG BACK INTO BED ALONE.SHE WAS UNABLE TO COMPLETE THIS TASK ALONE. CALL LIGHT WITHIN REACH.
--- NOTE | 2017-08-31 13:15 | NUR ---
PT IN BED WITH ICE ON LEFT KNEE. FOOT PUMPS IN PLACE, REPORTS PAIN OF 3/10. THIS IS A TOLLERABLE LEVEL FOR THE PT. CALL LIGHT WITHIN REACH. REPORTS NO OTHER NEEDS AT THIS TIME.
--- NOTE | 2017-08-31 15:49 | NUR ---
REFRESHED ICAE PACKS FOR KNEE. FOOT PUMPS IN PLACE. PT REPORTS PAIN 08/31. PROVIDED WARM BLANKET. PT WOULD LIKE TO TAKE A NAP. DOOR SHUT PER PT REQUEST. CALL LIGHT WITHIN REACH
--- NOTE | 2017-08-31 18:42 | NUR ---
pain medication given at 1736. cpm. pain is 3/10 when in bed. pt needs education on premedicating. give nausea medication before pain medication for nausea prevention. redness on leg. dr park. left wrist sl.
--- NOTE | 2017-08-31 20:48 | NUR ---
VITALS AND I&OS DONE AND CHARTED. HELPED PT GET TO THE BATHROOM AND BACK TO BED WITH HER FWW. LIAT HARTMANN HELPED ME TAKE THE CPM MACHINE OFF OF HER. BEDSIDE TABLE AND CALL LIGHT WITHIN REACH. FRESH ICE WATER GIVEN. PT NEEDS NOTHING ELSE AT THIS TIME.
--- NOTE | 2017-08-31 20:53 | NUR ---
CPM MACHINE TAKEN OFF OF PT FOR THE NIGHT. PT TOLERATED WELL. PT PLEASENT AT THIS TIME. RATES PAIN AT A 4/10 WHILE LAYING IN BED. FRESH ICE WATER AT BEDSIDE. NO FURTHER NEEDS.
--- NOTE | 2017-08-31 22:00 | NUR ---
PT REPORTS 2/10 PAIN AT THE MOMENT, STATES "ITS ACTUALLY BETTER TODAY." GAVE PRN OXYCODONE FOR PAIN PER PT REQUEST. PT STATES "IT WOULD PROBABLY BE GOOD FOR ME TO HAVE SOME PAIN MEDICATION BEFORE I TRY AND GO TO SLEEP."
--- NOTE | 2017-08-31 23:08 | NUR ---
PT APPEARS ASLEEP. LIGHTS AND TV OFF IN ROOM.
--- NOTE | 2017-09-01 04:39 | NUR ---
PT IN ROOM, WATCHING TV, NO DISTRESS AT THIS TIME. NO NEEDS.
--- NOTE | 2017-09-01 05:18 | NUR ---
PT AMBULATING IN THE HALLWAY, TOLERATING WELL. PT REPORTS SHE IS DOING MUCH BETTER THAN YESTERDAY, REPORTING MAKING IT "WAY FURTHER," TODAY. RATES PAIN AT A 6/10, REQUESTED TO HAVE ZOFRAN NOW AND THEN PAIN MEDICATION IN ABOUT A 1/2 HOUR.
--- NOTE | 2017-09-01 05:33 | NUR ---
VITALS AND I&OS DONE AND CHARTED. HELPED PT TO THE BATHROOM AND BACK WITH HER FWW. PT ALSO TOOK A SMALL WALK DOWN THE DEMPSEY PAST THE NURSES STATION AND BACK TO HER ROOM . FRESH WATER GIVEN AND ICE FOR HER DIET COKE. BEDSIDE TABLE AND CALL LIGHT WITHIN REACH. PT NEEDS NOTHING ELSE AT THIS TIME.
--- NOTE | 2017-09-01 06:18 | NUR ---
PT BACK IN BED, WATCHING TV. NO APPARENT DISTRESS. DENIES NAUSEA. RATES PAIN AT A 4/10, GAVE SCHEDULED TYLENOL AND OXYCODONE 5MG PRN. PT VERY PLEASENT. ALERT AND ORIENTED. SLEPT A COUPLE HOURS MORE HOURS LAST NIGHT THAN THE NIGHTS PRIOR ACCORDING TO PT. FRESH WATER GIVEN. NO FURTHER NEEDS. CALL LIGHT IN REACH.
--- NOTE | 2017-09-01 07:20 | NUR ---
RECEIVED REPORT FROM SENIOR EMBEDDED SOFTWARE ENGINEER RN. PT IN BED ITH ICE ON LEFT KNEE. INSITION OPEN TO AIR. REPORTS PAIN OF 4/10. STATES SHE ONLY SLEPT 1 HOUR LAST NIGHT. PT IS SL. CALL LIGHT WITHIN REACH. REPORTS NO OTHER NEEDS AT THIS TIME.
--- NOTE | 2017-09-01 09:54 | NUR ---
PREMEDICATED WITH ZOFRAN FOR PAIN MEDICATION. OXYCODONE 10MG GIVEN BERFOR PHYSICAL THERAPY. REFRESHED ICE PACKS ON LEFT KNEE. LEFT KNEE BRUISING APPEARS TO BE IMPROVING. WOUND IS APROXIMATED. PAIN IS 3/10. OXYCODONE 10MG GIVEN. LUNGS SOUND CLEAR. RESPIRATIONS EQUAL. CMS IS INTACT. HEART RATE NORMAL. PT IS A/O. NO HEAT OR REDDNESS AT INCITION SITE. SWELLING IS NOTED IN LLE FROM HIP TO ANKLE. PERSONAL ITEMS WITHIN REACH. CALL LGITH AT BEDSIDE. PT UP TO BATHROOM. REPORTS THE URGE TO VOID IS ABCENT STILL.
--- NOTE | 2017-09-01 11:53 | NUR ---
pt on cpm now. reports after first 4 or 5 movements. pain is down to 3/10. rounded with dr solitario. plans to dc today.
--- NOTE | 2017-09-01 12:09 | NUR ---
SET UP FOR LUNCH
--- NOTE | 2017-09-01 12:10 | NUR ---
SET PT UP FOR LUNCH. PICKED UP ROOM
[2017-09-01] MEDS ORDERED: ZOFRAN ODT4 MG PO (12:21)
[2017-09-01] MEDS ORDERED: PHENERGAN25 MG (12:22)
[2017-09-01] MEDS ORDERED: XARELTO10 MG PO (12:24)
[2017-09-01] MEDS ORDERED: OXYCODONE HCL5 MG PO (12:25)
[2017-09-01] MEDS ORDERED: TRAZODONE HCL50 MG PO (12:26)
[2017-09-01] MEDS ORDERED: PROMETHAZINE HC25 M1 PO (13:02)
--- NOTE | 2017-09-01 14:00 | NUR ---
reports pain 08/31. oxycodone given. call lgith within reach. remove cpm machinle. ice on pt left leg refreshed. personal items at bedside. SL removed. pt ready for discharge. waiting for to arrive.
--- NOTE | 2017-09-03 07:10 | DS ---
[facility] [address] [place], [place] [address] Signed ADMISSION DATE: 08/27/2017 DISCHARGE DATE: 09/01/2017 FINAL DIAGNOSIS AT THE TIME OF DISCHARGE: End-stage osteoarthritis, left knee. PROCEDURE: Left total knee arthroplasty. HISTORY OF PRESENT ILLNESS: The patient is a 67-year-old white female with end-stage osteoarthritis of the left knee, who is already status post right total knee arthroplasty. Because of inability to get significant symptomatic relief from conservative modalities, she presents for elective total knee arthroplasty on the left side. HOSPITAL COURSE: The patient was admitted to day surgery on 08/27/2017. Preoperative laboratory studies were within normative parameters. On the , she was taken to the operating room, where she underwent a total knee replacement on the left using an Attune PS total knee replacement. Postoperatively, the patient has done well, although she was somewhat slow initially in physical therapy and there were some struggles with anxiety and pain medication with anxiety and pain control. However, as of today, she is independently ambulatory. She got in and out of bed by herself. Her lab studies remain unremarkable. She is afebrile. Her incision was clean and dry. We will discharge her home. Have her continue outpatient therapy 3 times a week. She is being discharged home on Zofran and Phenergan for nausea. Xarelto for ongoing DVT prophylaxis, OxyIR for pain control and trazodone to be taken at bedtime if needed for anxiety. We will have her follow up with us in about 6 weeks and I will continue with outpatient physical therapy in the meantime. MD DENISE Rushing/ALLEN /[id number] Electronically Signed By: KEN HERNANDEZ MD 09/03/17 0710 PATIENT NAME: RUTH JHA DISCHARGE SUMMARY DATE OF : 52 REPORT #: [id number] PHYSICIAN: KEN HERNANDEZ MD PCP: CECY COATS MD REPORT IS CONFIDENTIAL AND NOT TO BE RELEASED WITHOUT AUTHORIZATION [address] [place], [place] [address] Signed Copies: ~ Electronically Signed By: KEN HERNANDEZ MD 09/03/17 0710 PATIENT NAME: RUTH JHA DISCHARGE SUMMARY DATE OF : 52 REPORT #: [id number] PHYSICIAN: KEN HERNANDEZ MD PCP: CECY COATS MD REPORT IS CONFIDENTIAL AND NOT TO BE RELEASED WITHOUT AUTHORIZATION
--- NOTE | 2017-09-09 08:21 | NUR ---
WAS CONTACTED BY [facility]. THEY HAVE ORDER FOR PATIENTS THERAPY FROM PHYSICAN OFFICE, DID NOT RECEIVE ANY NOTES FROM [facility]OSPITAL [facility]. CLINICALS FAXED TO THEM, FAX CONFIRMATION RECEIVED. CALLED EDENILSON AT OFFICE, SHE STATED SHE DID RECEIVE THE FAX.
== END 2017-09-01 16:00 | disposition home or self-care (01) | DRG 470 ==
LOC: DS 08:45 → OPS 08:45 → MS 08:46 → DS 11:30 → OPS 11:30 → DS 15:44 → MS 15:44 → OPS 15:45 → MS 15:45
PROVIDERS: ADMIT Orthopaedic Surgery
PROC: 0SRD0J9 Replacement of Left Knee Joint with Synthetic Substitute, Cemented, Open Approach (ICD-10-PCS; principal; 2017-08-27 11:30)
DX: M17.12 Unilateral primary osteoarthritis, left knee (principal); I47.1 Supraventricular tachycardia; B48.8 Other specified mycoses; E78.5 Hyperlipidemia, unspecified; F41.9 Anxiety disorder, unspecified; Z79.899 Other long term (current) drug therapy; Z88.2 Allergy status to sulfonamides; K59.09 Other constipation; Z79.890 Hormone replacement therapy; G47.00 Insomnia, unspecified
CPT/HCPCS: 36415; 64447; 73560; 76942; 80048; 85025; 85651; 97110; 97116; 97162; 97530; C1713; C1776; G8978; G8979; J0690; J1100; J1885; J2250; J2405; J2550; J2704; J2765; J2795; J3010; J7120; Q0177

== ENCOUNTER 2017-09-16 12:00 | Emergency (ER) | payer MEDICARE, OTHER ==
[~2017-09-16] VITALS: Ht 172.7 cm; Wt 81.7 kg
[~2017-09-16 12:00] MED LIST changes: +OXYCODONE HCL5 MG PO; +PHENERGAN25 MG; +PROMETHAZINE HC25 M1 PO; +TRAZODONE HCL50 MG PO; +XARELTO10 MG PO
== END 2017-09-16 13:34 | disposition home or self-care (01) ==
LOC: ED 12:00
DX: M79.662 Pain in left lower leg (principal); Z88.5 Allergy status to narcotic agent; Z88.2 Allergy status to sulfonamides; Z91.040 Latex allergy status; Z79.899 Other long term (current) drug therapy
CPT/HCPCS: 93971; 99284

== ENCOUNTER 2018-08-19 06:50 | Day surgery (SDC) | payer MEDICARE, OTHER ==
[~2018-08-19] VITALS: Ht 172.7 cm; Wt 81.7 kg
--- NOTE | 2018-08-19 10:08 | NUR ---
PT IS BACK TO DS FROM OR. SHE IS AWAKE AND ORIENTED. REPORTS SHE IS READY TO GO HOME AT THIS TIME. WILL COMPLETE DC INSTRUCTIONS FOR DC HOME.
--- NOTE | 2018-08-19 10:41 | NUR ---
PT IS GIVEN VERBAL DC INSTRUCTIONS, SHE VERBALIZES UNDERSTANDING. SHE HAD NO SEDATION AND IS ABLE TO DRIVE HERSELF HOME.
--- NOTE | 2018-08-19 12:09 | NUR ---
PT READING, SEEMED VERY CONTENT TO CONTINUE WITH HER BOOK. EXTENDED A BLESSING WILL FOLLOW NEEDED
--- NOTE | 2018-08-21 07:08 | OR ---
[facility] [address] [place], [place] [address] Signed DATE OF OPERATION: 08/19/2018 SURGEON: Tai Allred MD PREOPERATIVE DIAGNOSIS: Mucous cyst DIP joint, right long finger. POSTOPERATIVE DIAGNOSIS: Mucous cyst DIP joint, right long finger. PROCEDURE: Excision of mucous cyst. ANESTHESIA: Local. COMPLICATIONS: There were no complications. SPECIMENS: The cyst was sent as a single specimen. WHAT WAS DONE: The patient was taken to the operating room. After anesthesia was induced, we exsanguinated the finger with elevation. We then wrapped the small portion of a latex-free surgical glove around the base of the finger. This did give her some dysesthesias and we did infiltrate the area with a little more 0.25% Marcaine. Once she seemed to have an adequate level of anesthesia, a transverse incision was made centered on the mucous cyst. The skin was divided in a full-thickness fashion and a fusiform section was then removed with a mucous cyst in the middle. The underlying extensor mechanism appeared to be unaffected as did the nail matrix. A small rongeur was used to remove a small bone spur off the dorsal ulnar aspect of the joint. The wound was then gently irrigated and closed with interrupted sutures of 5-0 nylon. A sterile dressing was applied. She was awakened and taken to recovery room where she arrived in stable condition. Counts were correct and antibiotic protocols were followed. Tai Allred MD Electronically Signed By: TAI ALLRED MD 08/21/18 0708 PATIENT NAME: RUTH JHA OPERATIVE REPORT DATE OF : 52 REPORT #: [id number] PHYSICIAN: TAI ALLRED MD PCP: CECY COATS MD REPORT IS CONFIDENTIAL AND NOT TO BE RELEASED WITHOUT AUTHORIZATION [address] [place] [address] Signed [facility] /[id number] Copies: ~ Electronically Signed By: TAI ALLRED MD 08/21/18 0708 PATIENT NAME: RUTH JHA OPERATIVE REPORT DATE OF : 52 REPORT #: [id number] PHYSICIAN: TAI ALLRED MD PCP: CECY COATS MD REPORT IS CONFIDENTIAL AND NOT TO BE RELEASED WITHOUT AUTHORIZATION
== END 2018-08-19 10:22 | disposition home or self-care (01) ==
LOC: OPS 06:50 → DS 06:50 → OPS 09:45
PROVIDERS: Orthopaedic Surgery
PROC: 0XBJ0ZZ Excision of Right Hand, Open Approach (ICD-10-PCS; principal; 2018-08-19 09:45)
DX: L72.8 Other follicular cysts of the skin and subcutaneous tissue (principal); E78.00 Pure hypercholesterolemia, unspecified; M19.90 Unspecified osteoarthritis, unspecified site; Z88.2 Allergy status to sulfonamides; Z88.5 Allergy status to narcotic agent; Z91.040 Latex allergy status; Z79.899 Other long term (current) drug therapy
CPT/HCPCS: 88304; J2250; J3010

== ENCOUNTER 2019-04-14 05:50 | Day surgery (SDC) | payer MEDICARE, OTHER ==
[~2019-04-14] VITALS: Ht 172.7 cm; Wt 81.7 kg
--- NOTE | 2019-04-14 10:24 | NUR ---
04/14/19 [address]mm[address] Michel 6587 PT ARRIVED IN PACU AWAKE WITH NO C/O'S. 1010 SITTING UP IN BED SIPPING ON WATER. 1024 ICE TO R FOOT. SIPPING ON DIET PEPSI. NO C/O'S PAIN.
--- NOTE | 2019-04-15 09:37 | OR ---
[facility] [address] [place], [place] [address] Signed DATE OF OPERATION: 04/14/2019 SURGEON: Ken Allred MD PREOPERATIVE DIAGNOSIS: Bunion, right foot. POSTOPERATIVE DIAGNOSIS: Bunion, right foot. PROCEDURE: Chevron bunionectomy, right foot. ANESTHESIA: Forefoot block with sedation. SPECIMENS AND COMPLICATIONS: There were no specimens or complications. TOURNIQUET TIME: Was just about an hour. WHAT WAS DONE: The patient was taken to the operating room. The patient was sedated, prepped and draped in a routine sterile fashion. A Kovacs forefoot block was performed. The leg was then exsanguinated with an Esmarch bandage. A pneumatic tourniquet about the ankle was inflated to 250 mmHg pressure. We made a dorsal medial incision over the medial eminence and the distal portion of the 1st metatarsal. The skin was divided sharply. Subcutaneous tissue was bluntly spread. Several small veins were coagulated. The dorsal cutaneous nerve was identified and retracted along with the EHL. A dorsal capsulotomy was then performed and the capsule was gently elevated off the medial eminence and distal medial metatarsal shaft. After reflecting it in a plantar direction, a retractor was placed underneath the metatarsal head. The medial eminence was then resected at the mid sagittal sulcus. The fragment was removed. We then did a chevron osteotomy with the apex in the head. We then translated the capital fragment laterally about 5.5 cm and fixed it with two PDS pins. The medial prominence created by the lateral shift of the capital fragment was then trimmed with a small oscillating saw. We then placed some drill holes in the metatarsal neck and used it to reattach and imbricate the medial capsule correcting the residual valgus. The wound was gently irrigated. The capsule was closed with 2-0 FiberWire and the skin was closed with 3-0 Electronically Signed By: KEN ALLRED MD 04/15/19 0937 PATIENT NAME: RUTH JHA OPERATIVE REPORT DATE OF : 52 REPORT #: [id number] PHYSICIAN: KEN ALLRED MD PCP: CECY COATS MD REPORT IS CONFIDENTIAL AND NOT TO BE RELEASED WITHOUT AUTHORIZATION [address] [address] Signed nylon. A sterile dressing was applied followed by a standard forefoot dressing. The patient was awakened and taken to the recovery room where she arrived in stable condition. Counts were correct and antibiotic protocols were followed. Ken Allred MD [facility]L /[id number] Copies: ~ Electronically Signed By: KEN ALLRED MD 04/15/19 0937 PATIENT NAME: RUTH JHA OPERATIVE REPORT DATE OF : 52 REPORT #: [id number] PHYSICIAN: KEN ALLRED MD PCP: CECY COATS MD REPORT IS CONFIDENTIAL AND NOT TO BE RELEASED WITHOUT AUTHORIZATION
== END 2019-04-14 10:44 | disposition home or self-care (01) ==
LOC: OPS 05:50 → DS 05:50 → OPS 08:45 → DS 08:45 → OPS 10:44
PROVIDERS: Orthopaedic Surgery
PROC: 0QSN04Z Reposition Right Metatarsal with Internal Fixation Device, Open Approach (ICD-10-PCS; principal; 2019-04-14 08:45)
DX: M21.611 Bunion of right foot (principal); E78.00 Pure hypercholesterolemia, unspecified; M19.90 Unspecified osteoarthritis, unspecified site; Z88.5 Allergy status to narcotic agent; Z88.2 Allergy status to sulfonamides; Z91.040 Latex allergy status; Z79.899 Other long term (current) drug therapy; Z79.1 Long term (current) use of non-steroidal anti-inflammatories (NSAID)
CPT/HCPCS: J0690; J1100; J1885; J2250; J2405; J2704; J2795; J7120